=== PATIENT | female | born 1965 | race Caucasian/White ===

== ENCOUNTER → 2016-11-23 | Outpatient (CLI) | payer MEDICARE ==
[~2016-11-23] MED LIST: ACIPHEX 20 MG T20 MG PO; ADDERALL XR 3030 MG PO; BIOTIN1000 MC1 PO; DETROL LA 2 MG C2 MG PO; GABAPENTIN 400400 M1 PO; LINZESS145 MCG PO; Oxycodone5 MG PO; XANAX1 M1 PO; ZANAFLEX4 MG PO
[2016-11-23 16:30] LABS: HEMOGLOBIN 15.1 g/dL (12.2-16.2); LYMPH # 2.2 K/mm3 (0.7-4.5); LYMPH % 40.2 % (10-50.0)
[2016-11-23 16:43] LABS: BUN 10 mg/dL (7-18)
[2016-11-23 16:45] LABS: GFR (ESTIMATED) 76 ML/MIN (59-)
[2016-11-23 20:12] LABS: URINE BILIRUBIN - DIPSTICK NEGATIVE (NEG); URINE BLOOD NEGATIVE (NEG)
[2016-11-23 20:39] LABS: URINE SQUAMOUS CELLS 20-50 #/hpf (0-5)
[2016-11-23 21:05] LABS: AMPHETAMINES/METAMPHETAMINES POSITIVE ng/mL (<1000)
== END ==
LOC: LAB 15:09
PROVIDERS: Nurse Practitioner Acute Care
DX: B17.10 Acute hepatitis C without hepatic coma (principal); Z87.442 Personal history of urinary calculi; R82.90 Unspecified abnormal findings in urine; Z79.899 Other long term (current) drug therapy
CPT/HCPCS: G6040

== ENCOUNTER → 2017-07-31 | Outpatient (CLI) | payer MEDICARE ==
[2017-07-31 18:20] LABS: HEMOGLOBIN 13.7 g/dL (12.2-16.2); LYMPH # 2.1 K/mm3 (0.7-4.5); LYMPH % 29.8 % (10-50.0)
[2017-07-31 20:13] LABS: BUN 11 mg/dL (7-18)
[2017-07-31 20:14] LABS: GFR (ESTIMATED) 66 ML/MIN (59-)
[2017-08-02 08:48] LABS: Vitamin D, 25-Hydroxy 47.6 ng/mL (30.0-100.0)
[2017-08-02 09:37] LABS: Folate (Folic Acid) >20.0 ng/mL (>3.0); Vitamin B12 305 pg/mL (211-946)
== END ==
LOC: LAB 17:44
PROVIDERS: Physician Assistant
DX: L60.3 Nail dystrophy (principal); R23.8 Other skin changes; Z79.899 Other long term (current) drug therapy